=== PATIENT | female | born 1985 | race American Indian/Alaskan Native ===

== ENCOUNTER 2016-07-27 13:41 | Emergency (ER) | payer MEDICAID ==
[~2016-07-27] VITALS: Ht 172.7 cm; Wt 92.9 kg
[2016-07-27 13:43] VITALS: BP 149/94
== END 2016-07-27 14:24 | disposition left against medical advice (07) ==
LOC: ED 14:18
DX: R42 Dizziness and giddiness (principal); Z53.21 Procedure and treatment not carried out due to patient leaving prior to being seen by health care provider